=== PATIENT | male | born 1990 | race Hispanic/Latino ===

== ENCOUNTER 2018-01-27 10:58 | Emergency (ER) | payer OTHER ==
[2018-01-27] MEDS ORDERED: KETOROLAC TROMETHAMINE 60 MG/2 ML VIAL ONE (11:24)
== END 2018-01-27 12:11 | disposition home or self-care (01) ==
LOC: EDH 10:58
DX: M62.830 Muscle spasm of back (principal); Z88.8 Allergy status to other drugs, medicaments and biological substances
CPT/HCPCS: 72100; 96372; 99284; J1885